=== PATIENT | female | born 1965 | race Caucasian/White ===

== ENCOUNTER 2017-02-02 09:52 | Emergency (ER) | payer OTHER, MEDICAID ==
[~2017-02-02] VITALS: Ht 172.7 cm; Wt 72.0 kg
[~2017-02-02 09:52] MED LIST: ADDE20 PO; GABA600T PO; IPRASOL INH; KLON2TAB PO; LEXA20TA PO; LOVA40TA PO; LURA40 PO; OMEP20TA PO; SERO100T PO; ZAFI1TAB7 PO
[2017-02-02 09:54] VITALS: BP 139/63; PULSE 40; RESP 14; TEMP 97.6; O2SAT 100
[2017-02-02 10:39] VITALS: BP 132/73; PULSE 38; RESP 14; O2SAT 100
[2017-02-02] MEDS ORDERED: MELO-1 PO (10:41)
--- NOTE | 2017-02-02 10:43 | PD ---
HPI Chief Complaint: Cardiac Complaint Time Seen by Provider: 10:43 Travel History International Travel<30 days: No Contact w/Intl Traveler<30days: No Traveled to known affect area: No History of Present Illness HPI 51-year-old female came to the emergency room sent by her primary care for bradycardia. Patient's heart rate was in the 30s when she arrived in triage. Patient says that she has been very dizzy and falling over past 2 weeks multiple times. Today she went for her rotator cuff surgery but at the preop when they checked her heart rate it was extremely low. They asked her to see her primary care. The primary care called cardiology to see if they could see her in the office and they recommended that she should go to the emergency room immediately. Patient denies any chest pain. No history of shortness of breath. She does not have any cardiac issues that she knows of other than today. Blood pressure was stable. No history of syncopal episode. Patient is on Lopressor [facility] Past Medical History Narrative Medical List of her past medical, surgical, social and family history is reviewed from the nursing note. Asthma: Yes Anxiety: Yes Depression: No Cancer: No Cardiovascular Problems: Yes (AV BLOCK) High Cholesterol: Yes Diabetes: No Diminished Hearing: No Endocrine: No Genitourinary: No Hepatitis: No Hiatal Hernia: No Hypertension: Yes Immune Disorder: No Musculoskeletal: Yes Neurologic: No Psychiatric: Yes Reproductive: No Respiratory: Yes Integumentary: Yes (MRSA ALL OVER BODY) Immunizations Current: Yes Seizures: Yes (Pt reported a history of seizures) Thyroid Disease: No ?: Not Past Surgical History Abdominal Surgery: Yes (HERNIA) AICD: No Body Medical Devices: METAL LEFT FOOT AND ARM AND NECK Cardiac Surgery: No Ear Surgery: No Endocrine Surgery: No Eye Surgery: No Genitourinary Surgery: No Gynecologic Surgery: No Joint Replacement: No Oral Surgery: No Pacemaker: No Thoracic Surgery: No Other Surgery: Yes (8 ON RIGHT ARM OSTEOMYLETIS) Social History Alcohol Use: No Tobacco Use: No Substance Use: No Allergies-Medications (Allergen,Severity, Reaction): Coded Allergies: divalproex sodium (Unverified Allergy, Severe, LOW SODIUM, 02/02/17) sulfamethoxazole (Unverified Allergy, Severe, SWELLING, 02/02/17) tizanidine (Unverified Allergy, Severe, PASSES OUT, 02/02/17) trimethoprim (Unverified Allergy, Severe, SWELLING, 02/02/17) Sulfa (Sulfonamide Antibiotics) (Unverified Allergy, Mild, 02/02/17) Comments List of her allergies reviewed from the nursing note. Reported Meds & Prescriptions Reported Meds & Active Scripts Active Latuda (Lurasidone) 40 Mg Tab 40 Mg PO DAILY@08 Reported Lopressor (Metoprolol Tartrate) 50 Mg Tab 25 Mg PO BID Meloxicam 15 Mg Tab 15 Mg PO DAILY Duoneb (Ipratropium-Albuterol Neb) 0.5-2.5 Mg/3 Ml Neb 1 Nebule INH Q6HR NEB PRN Adderall (Amphetamine-Dextroamphetamine) 20 Mg Tab 20 Mg PO BID Avoid late evening doses. Space doses at least 4 to 6 hours if more than once/day dosing. Omeprazole 20 Mg Tab 20 Mg PO DAILY Lovastatin 40 Mg Tab 40 Mg PO HS Lexapro (Escitalopram Oxalate) 20 Mg Tab 20 Mg PO DAILY Gabapentin 600 Mg Tab 600 Mg PO TID Klonopin (Clonazepam) 2 Mg Tab 2 Mg PO QID Narrative Medication List of her home medications reviewed from the nursing note. Review of Systems Except as stated in HPI: all other systems reviewed are Neg Physical Exam Narrative GENERAL: Awake, alert, no obvious distress SKIN: Focused skin assessment warm/dry. HEAD: Atraumatic. Normocephalic. EYES: Pupils equal and round. No scleral icterus. No injection or drainage. ENT: No nasal bleeding or discharge. Mucous membranes pink and moist. NECK: Trachea midline. No JVD. CARDIOVASCULAR: Regular rate and rhythm. Bradycardia. No murmur appreciated. RESPIRATORY: No accessory muscle use. Clear to auscultation. Breath sounds equal bilaterally. GASTROINTESTINAL: Abdomen soft, non-tender, nondistended. Hepatic and splenic margins not palpable. MUSCULOSKELETAL: No obvious deformities. No clubbing. No cyanosis. No edema. NEUROLOGICAL: Awake and alert. No obvious cranial nerve deficits. Motor grossly within normal limits. Normal speech. PSYCHIATRIC: Appropriate mood and affect; insight and judgment normal. Data Data Last Documented VS Orders Orders Atropine Inj (Atropine Inj) (02/02/17 10:46) Electrocardiogram (02/02/17 10:49) Basic Metabolic Panel (Bmp) (02/02/17 10:49) Ckmb (Isoenzyme) Profile (02/02/17 10:49) Complete Blood Count With Diff (02/02/17 10:49) Magnesium (Mg) (02/02/17 10:49) Prothrombin Time / Inr (Pt) (02/02/17 10:49) Act Partial Throm Time (Ptt) (02/02/17 10:49) Troponin I (02/02/17 10:49) Chest, Single Ap (02/02/17 10:49) Ecg Monitoring (02/02/17 10:49) Bilateral Bp Monitoring (02/02/17 10:49) Iv Access Insert/Monitor (02/02/17 10:49) Oximetry (02/02/17 10:49) Oxygen Administration (02/02/17 10:49) Sodium Chloride 0.9% Flush (Ns Flush) (02/02/17 11:00) Sodium Chlorid 0.9% 500 Ml Inj (Ns 500 M (02/02/17 11:00) Atropine Inj (Atropine Inj) (02/02/17 11:00) CKMB (02/02/17 11:00) CKMB% (02/02/17 11:00) Admit Order (Ed Use Only) (02/02/17 13:08) Sodium Chloride 0.9% Flush (Ns Flush) (02/02/17 13:15) Sodium Chloride 0.9% Flush (Ns Flush) (02/02/17 21:00) Ondansetron Inj (Zofran Inj) (02/02/17 13:15) Naloxone Inj (Narcan Inj) (02/02/17 13:15) Labs Laboratory Tests Test 02/02/17 11:00 02/02/17 12:30 White Blood Count 4.5 TH/MM3 Red Blood Count 4.01 MIL/MM3 Hemoglobin 12.6 GM/DL Hematocrit 37.2 % Mean Corpuscular Volume 92.9 FL Mean Corpuscular Hemoglobin 31.4 PG Mean Corpuscular Hemoglobin Concent 33.8 % Red Cell Distribution Width 13.2 % Platelet Count 269 TH/MM3 Mean Platelet Volume 9.7 FL Neutrophils (%) (Auto) 37.5 % Lymphocytes (%) (Auto) 46.9 % Monocytes (%) (Auto) 11.7 % Eosinophils (%) (Auto) 3.2 % Basophils (%) (Auto) 0.7 % Neutrophils # (Auto) 1.7 TH/MM3 Lymphocytes # (Auto) 2.1 TH/MM3 Monocytes # (Auto) 0.5 TH/MM3 Eosinophils # (Auto) 0.1 TH/MM3 Basophils # (Auto) 0.0 TH/MM3 CBC Comment DIFF FINAL Differential Comment Blood Urea Nitrogen 7 MG/DL Creatinine 0.72 MG/DL Random Glucose 87 MG/DL Calcium Level 8.9 MG/DL Magnesium Level 2.1 MG/DL Sodium Level 137 MEQ/L Potassium Level 4.8 MEQ/L Chloride Level 106 MEQ/L Carbon Dioxide Level 27.5 MEQ/L Anion Gap 4 MEQ/L Estimat Glomerular Filtration Rate 85 ML/MIN Total Creatine Kinase 212 U/L Creatine Kinase MB 4.2 NG/ML Creatine Kinase MB % 2.0 % Troponin I LESS THAN 0.02 NG/ML Prothrombin Time 10.7 SEC Prothromb Time International Ratio 1.0 RATIO Activated Partial Thromboplast Time 23.8 SEC MDM Medical Decision Making Medical Screen Exam Complete: Yes Emergency Medical Condition: Yes Medical Record Reviewed: Yes Interpretation(s) Twelve-lead EKG was reviewed by me. Normal sinus rhythm, normal axis, first- degree AV block, bradycardia. Heart rate of 34 bpm. Differential Diagnosis Medication-induced bradycardia, sick sinus syndrome Narrative Course 12:38 PM patient received atropine IV by me soon upon her arrival. Since then her heart rate has been in the 50s. Blood pressure has been stable. Blood test results are back. I would like to admit her for observation. I explained all this to the patient. This could be related to her Lopressor which should obviously be held during the observation to see if the heart rate improves. Awaiting for the hospitalist to call back. Critical Care Narrative Aggregate critical care time was 45 minutes. Time to perform other separately billable procedures was not included in the critical care time. My time did not include minutes spent treating any other patients simultaneously or on activities that did not directly contribute to the patient's treatment. The services I provided to this patient were to treat and/or prevent clinically significant deterioration that could result in: Symptomatic bradycardia, atropine administration I provided critical care services requiring my management, as noted below: Chart data review, documentation time, medication orders and management, vital sign assessments/reviewing monitor data, ordering and reviewing lab tests, ordering and interpreting/reviewing x-rays and diagnostic studies, care of the patient and discussion of the patient with the admitting physicians. Procedures Procedure Narrative Peripheral IV insertion: The patient was a hard stick. 20-gauge Angiocath was inserted by me on the volar aspect of her wrist. Patient tolerated the procedure well. EKG Prior to Arrival: No Diagnosis Primary Impression: Symptomatic bradycardia Admitting Information Admitting Physician Requests: Observation Jose Enrique Middleton MD Feb 02, 2017 10:43
[2017-02-02] MEDS ORDERED: METO-309 PO (10:45)
[2017-02-02] MEDS ORDERED: ATROPINE SULFATE 1 MG/ML VIAL ONE (10:46)
[2017-02-02] MEDS ORDERED: SODIUM CHLORID 0.9% 500 ML INJ 500 ML IV ONE (11:00)
[2017-02-02] MEDS ORDERED: SODIUM CHLORIDE 0.9% FLUSH 10 ML FLUSH IVF PRN (11:00)
[2017-02-02] MEDS ORDERED: ATROPINE SULFATE 1 MG/ML VIAL IV PUSH ONE (11:00)
[2017-02-02 11:03] VITALS: O2SAT 100
[2017-02-02 11:04] VITALS: BP 152/84
[2017-02-02 11:07] VITALS: BP 145/76
--- NOTE | 2017-02-02 11:37 | RADRPT ---
EXAM DATE/TIME: 02/02/2017 11:02 [facility] COMPARISON: CHEST SINGLE AP, December 15, 2014, 0:32. INDICATIONS : Chest pain. MEDICAL HISTORY : None. SURGICAL HISTORY : None. ENCOUNTER: Initial ACUITY: 1 day PAIN SCORE: 2/10 LOCATION: Bilateral chest FINDINGS: A single view of the chest demonstrates the lungs to be symmetrically aerated without evidence of mas s, infiltrate or effusion. The cardiomediastinal contours are unremarkable. Osseous structures are intact. CONCLUSION: No acute disease. Jef Young MD FACR on February 02, 2017 at 11:36 Board Certified Radiologist. This report was verified electronically.
[2017-02-02 11:43] LABS: AUTOMATED NEUTROPHIL # 1.7 TH/MM3 (1.8-7.7); BASOPHIL % 0.7 % (0.0-2.0); EOSINOPHIL # 0.1 TH/MM3 (0-0.4); EOSINOPHIL % 3.2 % (0.0-4.0); HEMATOCRIT 37.2 % (35.0-46.0); HEMO FLAGS DIFF FINAL; LYMPH % 46.9 % (9.0-44.0); LYMPHOCYTE # 2.1 TH/MM3 (1.0-4.8); MEAN CELL VOLUME 92.9 FL (80.0-100.0); MEAN CORPUSCULAR HEMOGLOBIN 31.4 PG (27.0-34.0); MEAN CORPUSCULAR HGB CONC 33.8 % (32.0-36.0); MONO % 11.7 % (0.0-8.0); NEUT % 37.5 % (16.0-70.0); PLATELET COUNT 269 TH/MM3 (150-450); RED BLOOD COUNT 4.01 MIL/MM3 (4.00-5.30); RED CELL DISTRIBUTION WIDTH 13.2 % (11.6-17.2); WHITE BLOOD COUNT 4.5 TH/MM3 (4.0-11.0)
[2017-02-02 11:59] LABS: ANION GAP 4 MEQ/L (5-15); BICARBONATE 27.5 MEQ/L (21.0-32.0); BLOOD UREA NITROGEN 7 MG/DL (7-18); CHLORIDE 106 MEQ/L (98-107); GLOMERULAR FILTRATION RATE 85 ML/MIN (>89); MAGNESIUM 2.1 MG/DL (1.5-2.5); SODIUM (NA) 137 MEQ/L (136-145)
[2017-02-02 12:00] LABS: CREATINE KINASE 212 U/L (26-192)
[2017-02-02 12:01] LABS: POTASSIUM 4.8 MEQ/L (3.5-5.1)
[2017-02-02 12:14] LABS: CKMB 4.2 NG/ML (0.5-3.6)
[2017-02-02 13:00] LABS: APTT (PATIENT) 23.8 SEC (24.3-30.1); PROTHROMBIN TIME - PATIENT 10.7 SEC (9.8-11.6)
--- NOTE | 2017-02-02 13:14 | HHI.HP ---
[facility] LIMA العراقي Admission Diagnosis symptomatic bradycardia Diagnoses: Travel History International Travel<30 Days: No Contact w/Intl Traveler <30 Da: No Traveled to Known Affected Are: No Past Family Social History Allergies: Coded Allergies: divalproex sodium (Unverified Allergy, Severe, LOW SODIUM, 02/02/17) sulfamethoxazole (Unverified Allergy, Severe, SWELLING, 02/02/17) tizanidine (Unverified Allergy, Severe, PASSES OUT, 02/02/17) trimethoprim (Unverified Allergy, Severe, SWELLING, 02/02/17) Sulfa (Sulfonamide Antibiotics) (Unverified Allergy, Mild, 02/02/17) Physical Exam Vital Signs Vital Signs Date Time Temp Pulse Resp B/P (MAP) Pulse Ox O2 Delivery O2 Flow Rate FiO2 02/02/17 11:07 145/76 (99) 02/02/17 11:04 152/84 (106) 02/02/17 11:03 100 Room Air 02/02/17 11:03 100 Room Air 02/02/17 10:39 38 14 132/73 (92) 100 Room Air 02/02/17 09:54 97.6 40 14 139/63 (88) 100 Room Air Physical Exam GENERAL: This is a well-nourished, well-developed patient, in no apparent distress. SKIN: No rashes, ecchymoses or lesions. Cool and dry. HEAD: Atraumatic. Normocephalic. No temporal or scalp tenderness. EYES: Pupils equal round and reactive. Extraocular motions intact. No scleral icterus. No injection or drainage. ENT: Nose without bleeding, purulent drainage or septal hematoma. Throat without erythema, tonsillar hypertrophy or exudate. Uvula midline. Airway patent. NECK: Trachea midline. No JVD or lymphadenopathy. Supple, nontender, no meningeal signs. CARDIOVASCULAR: Regular rate and rhythm without murmurs, gallops, or rubs. RESPIRATORY: Clear to auscultation. Breath sounds equal bilaterally. No wheezes , rales, or rhonchi. GASTROINTESTINAL: Abdomen soft, non-tender, nondistended. No hepato-splenomegaly , or palpable masses. No guarding. MUSCULOSKELETAL: Extremities without clubbing, cyanosis, or edema. No joint tenderness, effusion, or edema noted. No calf tenderness. Negative Homans sign bilaterally. NEUROLOGICAL: Awake and alert. Cranial nerves II through XII intact. Motor and sensory grossly within normal limits. Five out of 5 muscle strength in all muscle groups. Normal speech. Laboratory Laboratory Tests Test 02/02/17 11:00 02/02/17 12:30 White Blood Count 4.5 Red Blood Count 4.01 Hemoglobin 12.6 Hematocrit 37.2 Mean Corpuscular Volume 92.9 Mean Corpuscular Hemoglobin 31.4 Mean Corpuscular Hemoglobin Concent 33.8 Red Cell Distribution Width 13.2 Platelet Count 269 Mean Platelet Volume 9.7 Neutrophils (%) (Auto) 37.5 Lymphocytes (%) (Auto) 46.9 Monocytes (%) (Auto) 11.7 Eosinophils (%) (Auto) 3.2 Basophils (%) (Auto) 0.7 Neutrophils # (Auto) 1.7 Lymphocytes # (Auto) 2.1 Monocytes # (Auto) 0.5 Eosinophils # (Auto) 0.1 Basophils # (Auto) 0.0 CBC Comment DIFF FINAL Differential Comment Blood Urea Nitrogen 7 Creatinine 0.72 Random Glucose 87 Calcium Level 8.9 Magnesium Level 2.1 Sodium Level 137 Potassium Level 4.8 Chloride Level 106 Carbon Dioxide Level 27.5 Anion Gap 4 Estimat Glomerular Filtration Rate 85 Total Creatine Kinase 212 Creatine Kinase MB 4.2 Creatine Kinase MB % 2.0 Troponin I LESS THAN 0.02 Prothrombin Time 10.7 Prothromb Time International Ratio 1.0 Activated Partial Thromboplast Time 23.8 Result Diagram: 02/02/17 1100 02/02/17 1100 Caprini VTE Risk Assessment Caprini Risk Assessment Model Point Value = 1 Point Value = 2 Point Value = 3 Point Value = 5 Age 41-60 Minor surgery BMI > 25 kg/m2 Swollen legs Varicose veins or History of unexplained or recurrent spontaneous Oral contraceptives or hormone replacement Sepsis (< 1 month) Serious lung disease, including pneumonia (< 1 month) Abnormal pulmonary function Acute myocardial infarction Congestive heart failure (< 1 month) History of inflammatory bowel disease Medical patient at bed rest Age 61-74 Arthroscopic surgery Major open surgery (> 45 min) Laparoscopic surgery (> 45 min) Malignancy Confined to bed (> 72 hours) Immobilizing plaster cast Central venous access Age >= 75 History of VTE Family history of VTE Factor V Leiden Prothrombin [id number] Lupus anticoagulant Anticardiolipin antibodies Elevated serum homocysteine Heparin-induced thrombocytopenia Other congenital or acquired thrombophilia Stroke (< 1 month) Elective arthroplasty Hip, pelvis, or leg fracture Acute spinal cord injury (< 1 month) Prophylaxis Regimen Total Risk Factor Score Risk Level Prophylaxis Regimen 0-1 Low Early ambulation 2 Moderate Order ONE of the following: *Sequential Compression Device (SCD) *Heparin 5000 units SQ BID 3-4 Higher Order ONE of the following medications: *Heparin 5000 units SQ TID *Enoxaparin/Lovenox 40 mg SQ daily (WT < 150 kg, CrCl > 30 mL/min) *Enoxaparin/Lovenox 30 mg SQ daily (WT < 150 kg, CrCl > 10-29 mL/min) *Enoxaparin/Lovenox 30 mg SQ BID (WT < 150 kg, CrCl > 30 mL/min) AND/OR *Sequential Compression Device (SCD) 5 or more Highest Order ONE of the following medications: *Heparin 5000 units SQ TID (Preferred with Epidurals) *Enoxaparin/Lovenox 40 mg SQ daily (WT < 150 kg, CrCl > 30 mL/min) *Enoxaparin/Lovenox 30 mg SQ daily (WT < 150 kg, CrCl > 10-29 mL/min) *Enoxaparin/Lovenox 30 mg SQ BID (WT < 150 kg, CrCl > 30 mL/min) AND *Sequential Compression Device (SCD) Nish Webster MD Feb 02, 2017 13:14
[2017-02-02] MEDS ORDERED: NALOXONE HCL 0.4 MG/ML AMP IV PUSH PRN (13:15)
[2017-02-02] MEDS ORDERED: SODIUM CHLORIDE 0.9% FLUSH 10 ML FLUSH IV FLUSH PRN (13:15)
[2017-02-02] MEDS ORDERED: ONDANSETRON HCL 4 MG/2 ML VIAL IVP PRN (13:15)
--- NOTE | 2017-02-02 13:23 | HHI.PR ---
Addendum to Inpatient Note Addendum Reason: Additional Documentation Additional Information Arrived to see patient. She informed that she is not staying in the Hospital and will be going home. I advised the community director to inform Dr. Middleton as she was not available at the time. Nish Webster MD Feb 02, 2017 13:23
--- NOTE | 2017-02-02 13:58 | EKG ---
Date Performed: 02/02/2017 Time Performed: 10:40:07 PTAGE: 51 years EKG: SINUS BRADYCARDIA WITH FIRST DEGREE AV BLOCK ABNORMAL ECG PREVIOUS TRACING : 03/07/2016 21.40 DOCTOR: Franck Downing Interpretating Date/Time 02/02/2017 13:54:48
[2017-02-02] MEDS ORDERED: SODIUM CHLORIDE 0.9% FLUSH 10 ML FLUSH IV FLUSH SCH (21:00)
== END 2017-02-02 13:39 | disposition left against medical advice (07) ==
LOC: NEPE 09:52 → NEDA 13:14 → UNDOADMOB 13:14 → NEPE 13:39
DX: R00.1 Bradycardia, unspecified (principal); R42 Dizziness and giddiness; I10 Essential (primary) hypertension; E78.00 Pure hypercholesterolemia, unspecified; Z87.09 Personal history of other diseases of the respiratory system; Z86.59 Personal history of other mental and behavioral disorders; Z86.79 Personal history of other diseases of the circulatory system; Z87.39 Personal history of other diseases of the musculoskeletal system and connective tissue; Z86.14 Personal history of Methicillin resistant Staphylococcus aureus infection; Z86.69 Personal history of other diseases of the nervous system and sense organs; Z53.29 Procedure and treatment not carried out because of patient's decision for other reasons
CPT/HCPCS: 71010; 80048; 82550; 82552; 83735; 84484; 85025; 85610; 85730; 93005; J0461; J7040